=== PATIENT | female | born 1995 | race Caucasian/White ===

== ENCOUNTER 2023-11-29 14:36 | Emergency (ER) | payer MEDICAID, SELFPAY ==
--- NOTE | 2023-11-29 14:47 | ED.URI ---
HPI - URI/Sore Throat General Chief Complaint: Upper Respiratory Infection Stated Complaint: Sore Throat Source: patient and RN notes reviewed Mode of arrival: ambulatory Limitations: no limitations History of Present Illness HPI Narrative: Patient is a 28-year-old female who presents to the [facility] with complaints of sore throat since Wednesday. She also endorses a frequent productive cough with clear sputum. States that she has been experiencing nasal congestion and drainage. She denies fevers, sweats, chills. She is unsure of any known sick contacts. She denies chest pain or shortness of breath. Denies abdominal pain, nausea, vomiting, diarrhea. Related Data Home Medications Medication Instructions Recorded Confirmed No Home Medications 11/29/23 11/29/23 Allergies Allergy/AdvReac Type Severity Reaction Status Date / Time No Known Allergies Allergy Verified 11/29/23 14:45 Review of Systems Review of Systems: CONSTITUTIONAL: Denies fever, chills, or sweats. EYES: Denies visual changes, redness, or discharge. ENT: Denies otalgia. Reports sore throat. Reports nasal congestion and drainage. CARDIOVASCULAR: Denies chest pain, palpitations, or edema. RESPIRATORY: Denies dyspnea. Reports cough. GASTROINTESTINAL: Denies abdominal pain, nausea, vomiting, or diarrhea. GENITOURINARY: Denies dysuria or hematuria. SKIN: Denies rash or itching. MUSCULOSKELETAL: Denies back pain, joint pain, but reports myalgia. NEUROLOGIC: Denies headache, numbness, or weakness. Pertinent positives per HPI. PMFSH Comments At the time of my signature, I reviewed and agree with the nursing past medical, surgical, social, and family history. There is no relevant family history pertinent to the patient complaint. Exam Narrative: GENERAL: This is a well-nourished, well-developed patient, in no apparent distress. HEAD: normocephalic, atraumatic. EYES: Sclera clear/white. Vision is grossly intact. EARS: External ears normal. Hearing grossly intact. NOSE: External nose normal. + Nasal congestion. THROAT: Mucous membranes moist, Oropharyngeal erythema without exudate or ulceration. NECK: Neck supple, non-tender without lymphadenopathy, masses or thyromegaly. CARDIOVASCULAR: Regular rate and rhythm without murmurs, gallops, or rubs. RESPIRATORY: Clear to auscultation. Breath sounds equal bilaterally. No wheezes, rales, or rhonchi. GASTROINTESTINAL: Abdomen soft, non-tender, nondistended. Bowel sounds are active. No hepato-splenomegaly, or palpable masses. No guarding. SKIN: warm, intact with no suspicious lesions or rash, good texture and turgor. NEURO: awake, alert, and oriented to person, place and time. There were no obvious focal neurologic abnormalities. EXTREMITIES: No clubbing, cyanosis, or edema. No joint tenderness, effusion, or edema noted. BACK: Nontender without deformity or crepitance. No flank tenderness. Course Course Level of Care: Express Care Visit Vital Signs Vital signs: Vital Signs Temperature 98.3 F 11/29/23 14:51 Pulse Rate 84 11/29/23 14:51 Respiratory Rate 18 11/29/23 14:51 Blood Pressure 129/84 11/29/23 14:51 Pulse Oximetry 100 11/29/23 14:51 Oxygen Delivery Room Air 11/29/23 14:51 Temperature 98.3 F 11/29/23 14:51 Pulse Rate 84 11/29/23 14:51 Respiratory Rate 18 11/29/23 14:51 Blood Pressure 129/84 11/29/23 14:51 Pulse Oximetry 100 11/29/23 14:51 Oxygen Delivery Room Air 11/29/23 14:51 Reviewed MDM - URI/Sore Throat MDM Narrative Medical decision making narrative: Rapid strep is negative in the office; however we will send to the lab for confirmation; there is a small percentage chance that it can come back positive; if it is, we will call you in 2-3days; and your prescription will be call in to your pharmacy. However, there is NO indication for antibiotic at this time. -Increase your fluids and Vitamin C. -Oral rinses such as: Salt water gargle
[2023-11-29 14:51] VITALS: BP 129/84; PULSE 84; RESP 18; TEMP 36.8; O2SAT 100
== END 2023-11-29 15:04 | disposition home or self-care (01) ==
PROVIDERS: Emergency Provider Nurse Practitioner
DX: J02.9 Acute pharyngitis, unspecified (principal)
CPT/HCPCS: 87081; 87880; 99213; G0463

== ENCOUNTER 2025-05-23 03:45 | Emergency (ER) | payer BC, SELFPAY ==
[2025-05-23 03:52] VITALS: BP 143/97; PULSE 119; RESP 20; TEMP 37.1; O2SAT 100
--- NOTE | 2025-05-23 04:01 | ED_ITS ---
HPI - Epistaxis General Chief complaint: Epistaxis Stated complaint: nose bleed, post op Time Seen by Provider: 05/23/25 03:55 Source: patient and other (Boyfriend) Mode of arrival: ambulatory Limitations: no limitations History of Present Illness HPI Narrative: Patient presents with epistaxis that started spontaneously at 11:00 p.m.. She had surgery on 05/14/[address] Stephen Carr at [facility] for a deviated septum. She had had no issues since including no epistaxis. Tonight she was washing her face gently and doing her normal skin care routine. She denies any trauma. It spontaneously started to bleed which he turned her head and she believes it was coming out of the left more than the right naris which she says had more issues with the turbinates at baseline. She was placed on cefdinir and had saline spray postoperatively. She is not on anticoagulation. She has a follow-up appointment with her ENT doctor currently scheduled for tomorrow, . When it 1st started she called her friend who is a nurse who recommended that she pinch it and leaned forward and then she use Afrin a few times and continued to pinch it. Medications include the following: Spironolactone, lateral, control, singular, montelukast. Related Data Home Medications ?Medication ?Instructions ?Recorded ?Confirmed ?Last Taken ?Type No Home Medications 11/29/23 11/29/23 U nknown History Allergies Allergy/AdvReac Type Severity Reaction Status Date / Time No Known Allergies Allergy Verified 11/29/23 14:[facility] Past Medical History Medical History (Updated 05/23/25 @ 04:39 by Kellie Schwartz MD) History of deviated nasal septum Surgical History Surgical History History of ear, nose, and throat (ENT) surgery 05/14/25: [facility] w/ Dr Stephen Fiore Social History Social History Living arrangements: other Additional living arrangements comments: with fiance Exam 2 Narrative: GENERAL: Well-appearing, well-nourished, and in no acute distress. HEAD: Normocephalic, atraumatic. EYES: Non injected, non icteric ENT: Epistaxis; appreciated in bilateral nares initially though degree limits full inspection. Gross auditory acuity intact. Blood on tongue. Uvula midline. No trismus. After patient spits there is blood noted to be dripping down from nose into posterior oropharynx on the left. NECK: Supple. No meningismus. CHEST: Speaking in full sentences. No respiratory distress. HEART: Tachycardic rate and rhythm. . ABDOMEN: Soft, nondistended. EXTREMITIES: Normal range of motion. No lower extremity edema. SKIN: Warm, dry, no rash. NEURO: No focal deficits. Alert and oriented. Answering questions. Following commands. Normal speech without aphasia or dysarthria. PSYCH: Normal mood and affect. Course Vital Signs Vital signs: Vital Signs Temperature 98.7 F 05/23/25 03:52 Pulse Rate 119 H 05/23/25 03:52 Respiratory Rate 20 05/23/25 03:52 Blood Pressure 143/97 H 05/23/25 03:52 Pulse Oximetry 100 05/23/25 03:52 Temperature 98.7 F 05/23/25 03:52 Pulse Rate 97 05/23/25 04:34 Respiratory Rate 20 05/23/25 04:34 Blood Pressure 132/85 05/23/25 04:34 Pulse Oximetry 100 05/23/25 04:34 Procedures Epistaxis Control bilateral: Epistaxis Control Date: 05/23/25 Epistaxis Control Time: 04:45 Nose Prepped With: oxymetazoline Direct Inspection: unable to visualize Clots Removed by: blowing nose Device Inserted: nasal tampon (pledgets made and soaked in mixture of 10cc TXA and 10cc lidocaine 1%) Patient Tolerated Procedure: well Epistaxis Control Narrative: Cautery using silver nitrate use in left naris at approximately 05:45. Bleeding had stopped and then noted to start again At approximately 06:15, RhinoRocket posterior /long lubricated and inserted by myself into left naris and inflated. Bleeding at and then around the device then noted. At approximately 7:45 am, Surgicell/Surgiflo/Floseal mixed and administered into left naris. Patient tolerates well. MDM - Epistaxis MDM Narrative Medical decision making narrative: Patient presents with report of epistaxis starting at 2300 on 05/22/25. She underwent surgery for deviated septum on 05/14/[address] Yousif Carr. She had had no complications since. In the emergency department she is afebrile vital signs notable for hypertension tachycardia. Hematocrit mildly low but hemoglobin okay. Afrin administered. Patient is reassessed and with clamp taken off there is no appreciable drainage in the posterior oropharynx and 1st only thickened blood is appreciated in the anterior nares without any evidence of active blood vessels however shortly thereafter he does have blood oozing of right naris. Lidocaine and TXA are ordered and pledgets inserted as above. Repeat VS show BP and HR have normalized. Cautery followed by RhinoRocket as above. Augmentin given. [place] ordered. Dr Hernandez water pumping station engineer ENT attempted to be contacted. I then called patient's ENT Dr Stephen Fiore after hours number. Dr Fiore recommends surgicell. Found similar product. Discussed with pharmacy who recommends obtaining from surgery. he notes that he does not have clinic today but she can follow-up in clinic tomorrow. He is in procedures all day today. Discussed with Dr Hernandez who recommends the same. Also notes that if this fails then bilateral rhino rockets could be inserted. He notes that he is in procedures all day today in [place]. Bleeding control achieved after thrombin product administered. Patient remains in the emergency department without recurrent bleeding. Stable for discharge. Advised that she can finish the last tablet of her cefdinir that had been prescribed. She had been given a dose of Augmentin when she had a rhino rocket inserted but no need for continued antibiotic otherwise now that rhino rocket is no longer in place. Advised to follow-up with her fleet technician. Already currently had an appointment scheduled for postsurgical follow-up tomorrow. Alternatively, given contact information for our water pumping station engineer ENT. Denies needing a work note despite missing work today though one is provided regardless. Differential Diagnosis Differential diagnosis: Likely nasal bone fracture, anterior epistaxis, posterior epistaxis and other (considered coagulopathy; post surgical complication) Lab Data Attestation: I reviewed the patient's lab results. 05/23/25 04:11 05/23/25 04:11 Labs: Lab Results 05/23/25 Range/Units 04:11 WBC 8.6 (4.5-10.0) K/mm3 RBC 3.91 L (4.2-5.4) M/mm3 Hgb 12.0 (12.0-15.0) g/dL Hct 35.5 L (37.0-47.0) % MCV 90.8 (80-100) fl MCH 30.7 (26-34) pg MCHC 33.8 (32-36) g/dl RDW 11.6 (11.5-14.5) % Plt Count 289 (150-375) k/mm3 MPV 8.7 (7.4-10.4) fl Immature Gran % (Auto) 0.1 (0-0.5) % Neut % (Auto) 61.1 (45.5-73.1) % Lymph % (Auto) 29.4 (18.3-44.2) % [place] % (Auto) 7.5 (2.6-8.5) % Eos % (Auto) 1.4 (0-4.4) % Baso % (Auto) 0.5 (0.2-1.2) % Lymph # (Auto) 2.53 (0.9-3.2) K/mm3 [place] # (Auto) 0.7 H (0.1-0.6) K/mm3 Eos # (Auto) 0.1 (0-0.3) K/mm3 Baso # (Auto) 0.0 (0.0-0.1) K/mm3 Abs Immat Gran (auto) 0.01 (0.00-0.031) K/mm3 Absolute Neuts (auto) 5.3 (1.3-6.7) K/mm3 Absolute Nucleated RBC 0.000 (0.0-0.012) K/mm3 Nucleated RBC % 0.0 (0.0-0.2) % PT 13.5 (11.1-14.7) Seconds INR 1.0 APTT 30.1 (22.3-36.8) Seconds Sodium 138 (137-145) mmol/L Potassium 3.9 (3.4-5.0) mmol/L Chloride 103 (98-107) mmol/L Carbon Dioxide 24 (22-30) mmol/L Anion Gap 11 (4-12) mmol/L BUN 19 H (7-17) mg/dL Creatinine 0.64 L (0.7-1.0) mg/dL Estim Creat Clear Calc 113 ml/min Estimated GFR > 60 (59 - ) Glucose 103 (65-110) mg/dL Calcium 9.5 (8.4-10.2) mg/dL Discharge Plan Discharge Clinical Impression: Postsurgical epistaxis Patient Disposition: Home Condition: Stable Instructions: Antibiotic Form, Nosebleed (ED) Additional Instructions: Keep your upcoming follow-up appointment tomorrow with your fleet technician Dr Stephen Fiore. If needed, the name of another ENT doctor is listed below. Return to the emergency department any new worsening symptoms. Patient Language: Bangladeshi Prescriptions: No Action No Home Medications Follow-up/Referrals: Vega Hernandez MD [Physician, Ear, Nose, Throat] PHYSICIAN,RELOCATION SERVICES SPECIALIST [Non-Staff, Internal Medicine] Stand Alone Forms: Work/School Release IP Time of Disposition: 08:13
--- NOTE | 2025-05-23 04:01 | PC.NURSE ---
While in room triaging pt, the pt started to cough up clots and was gaging on the large clots. Pt was able to clear and maintain airway. Will continue to monitor.
[2025-05-23] MEDS: OXYMETAZOLINE HCL 0.05% NAS 15 ML BTL (*BKC) 1 SPRAY NASAL (04:14)
[2025-05-23 04:17] LABS: Hematocrit 35.5 % (37.0-47.0); Hemoglobin 12.0 g/dL (12.0-15.0); Immature Granulocyte Percent A 0.1 % (0-0.5); Lymphocytes Absolute Auto 2.53 K/mm3 (0.9-3.2); Mean Corpuscular HGB Conc 33.8 g/dl (32-36); Mean Corpuscular Hemoglobin 30.7 pg (26-34); Mean Corpuscular Volume 90.8 fl (80-100); Nucleated Red Blood Cells Absolute Auto 0.000 K/mm3 (0.0-0.012); Nucleated Red Blood Cells Perc 0.0 % (0.0-0.2); Platelet Count Result 289 k/mm3 (150-375); Red Blood Count 3.91 M/mm3 (4.2-5.4); White Blood Count 8.6 K/mm3 (4.5-10.0)
[2025-05-23 04:29] LABS: INR 1.0; Partial Thromboplastin Time 30.1 Seconds (22.3-36.8); Prothrombin Time 13.5 Seconds (11.1-14.7)
[2025-05-23 04:32] LABS: Anion Gap 11 mmol/L (4-12); Blood Urea Nitrogen 19 mg/dL (7-17); Calcium 9.5 mg/dL (8.4-10.2); Carbon Dioxide 24 mmol/L (22-30); Chloride 103 mmol/L (98-107); Estimated CRCL calculation 113 ml/min; Estimated Glomerular Filt Rate > 60; Glucose 103 mg/dL (65-110); Potassium 3.9 mmol/L (3.4-5.0); Sodium 138 mmol/L (137-145)
[2025-05-23 04:34] VITALS: BP 132/85; PULSE 97; RESP 20; O2SAT 100
[2025-05-23] MEDS: SILVER NITRATE (*SP) STICK 1 EACH TOPICAL (05:59)
[2025-05-23] MEDS: HYDROcodone/acetaminophen (*CRX) 5-325 MG TABLET 1 TAB PO (06:35)
--- NOTE | 2025-05-23 07:30 | PC.NURSE ---
contacted central supply for Hemostatic Matrix Kit, they are going to call back if they have it.
== END 2025-05-23 08:34 | disposition home or self-care (01) ==
PROVIDERS: Emergency Provider Student in an Organized Health Care Education/Training Program
DX: J95.831 Postprocedural hemorrhage of a respiratory system organ or structure following other procedure (principal); R04.0 Epistaxis
CPT/HCPCS: 30901; 36415; 80048; 85025; 85610; 85730; 99283; A9270